=== PATIENT | male | born 1970 | race Caucasian/White ===

== ENCOUNTER 2023-09-08 13:20 | Emergency (ER) | payer OTHER, SELFPAY ==
--- NOTE | 2023-09-08 13:33 | ED.WOUNDLAC ---
HPI - Wound/Laceration General Chief Complaint: Wound/Laceration Stated Complaint: rt leg abrasion Source: patient Mode of arrival: ambulatory Limitations: no limitations History of Present Illness HPI narrative: 53-year-old male presented for complaint of laceration to the right lower leg sustained about 1 hour prior to arrival. He states he cut the leg on a piece of glass while taking out the garbage. He cleansed it with a wet paper towel and then applied Coban. Denies decreased ROM or pain. States tetanus is up-to-date. Related Data Home Medications Medication Instructions Recorded Confirmed duloxetine 30 mg capsule,delayed mg PO 09/08/23 release pregabalin 100 mg capsule mg 09/08/23 Allergies Allergy/AdvReac Type Severity Reaction Status Date / Time Penicillins Allergy Rash Verified 09/08/23 13:36 Review of Systems Review of Systems: CONSTITUTIONAL: Denies body aches, fever, chills, or sweats. CARDIOVASCULAR: Denies chest pain, palpitations, or edema. RESPIRATORY: Denies cough or dyspnea. GASTROINTESTINAL: Denies abdominal pain, nausea, vomiting, or diarrhea. SKIN: reports lac to right leg MUSCULOSKELETAL: Denies back pain, joint pain, or myalgia. NEUROLOGIC: Denies headache, numbness, tingling, or weakness. PMFSH Comments At time of signature, I have reviewed and agree with nursing past medical, surgical, social and family history unless otherwise noted. Please see nursing chart for further information. There is no relevant family history pertinent to the presenting complaint Exam Narrative: GENERAL: Well-appearing ENT: Mucous membranes moist. Oropharynx without edema, erythema or lesions. NECK: Supple. CHEST: Clear to auscultation. HEART: Regular rate and rhythm. SKIN: Warm, dry. Right posterior lower leg/calf with 3.5 cm linear clean lac noted, active bleeding. Tendon reflex intact. CMS intact. NEURO: Alert and oriented x3. Course Course Emergency Course: Patient is aware of diagnosis, understands and agrees to treatment plan. Anticipatory guidance given. Patient agrees to follow-up as directed and is aware of reasons to seek care at the emergency department. Portions of this record may have been created with voice recognition software Level of Care: Express Care Visit Vital Signs Vital signs: Vital Signs Temperature 98.0 F 09/08/23 13:34 Pulse Rate 100 09/08/23 13:34 Respiratory Rate 16 09/08/23 13:34 Blood Pressure 156/76 H 09/08/23 13:34 Pulse Oximetry 100 09/08/23 13:34 Oxygen Delivery Room Air 09/08/23 13:34 Temperature 98.0 F 09/08/23 13:36 Pulse Rate 100 09/08/23 13:36 Respiratory Rate 16 09/08/23 13:36 Blood Pressure 156/76 H 09/08/23 13:36 Pulse Oximetry 100 09/08/23 13:36 Oxygen Delivery Room Air 09/08/23 13:36 Reviewed Procedures Laceration right leg: Size (cm): 3.5 Description: linear and clean Depth: simple, single layer Local Anesthetic: lidocaine 1% and with epi Amount of anesthesia used (mL): 5 Pre-repair: wound explored and irrigated (50mL) ====== Skin Level ====== Skin layer closed with: nylon Size (cm): 5-0 Number of sutures: 6 Technique: simple, interrupted ====== Subcutaneous Layer ====== ====== Muscle Layer ====== ====== Tendon Layer ====== Dressing: The procedure and its alternatives were reviewed with patient. Risks were reviewed with patient including infection and damage to nearby structures. Patient provided verbal informed consent. The patient was positioned appropriately. Sterile drapes applied to maintain sterile field. Wound was explored for abnormalities including infection and foreign bodies. Sutures placed with wound edges approximated. Patient tolerated well, no complications. Dressing applied per RN. MDM - Wound/Laceration MDM Narrative Medical decision making narrative: Disc
[2023-09-08 13:34] VITALS: BP 156/76; PULSE 100; RESP 16; TEMP 36.7; O2SAT 100
[2023-09-08 13:36] VITALS: BP 156/76; PULSE 100; RESP 16; TEMP 36.7; O2SAT 100
[2023-09-08] MEDS: LIDO 1%/EPINEPHRINE 1:100,000 20 ML VIAL 10 ML INFILTRATE (13:45)
== END 2023-09-08 14:18 | disposition home or self-care (01) ==
PROVIDERS: Emergency Provider Nurse Practitioner Family; PCP Family Medicine
DX: S81.811A Laceration without foreign body, right lower leg, initial encounter (principal); W25.XXXA Contact with sharp glass, initial encounter
CPT/HCPCS: 12002; 99213; G0463

== ENCOUNTER 2023-09-15 11:23 | Emergency (ER) | payer OTHER, SELFPAY ==
[2023-09-15 11:35] VITALS: BP 137/84; PULSE 66; RESP 18; TEMP 36.7; O2SAT 98
--- NOTE | 2023-09-15 12:04 | ED.SKABFB ---
HPI - Skin/Abscess/Foreign Bdy General Chief complaint: Wound/Laceration Stated complaint: stitches removed Time Seen by Provider: 09/15/23 11:59 Source: patient, RN notes reviewed and old records reviewed Mode of arrival: ambulatory Limitations: no limitations History of Present Illness HPI narrative: Patient presents today for suture removal. He had 6 sutures placed in the posterior right calf 1 week ago after cutting his leg on glass. Patient reports no issues with the sutures since placement. Related Data Home Medications Medication Instructions Recorded Confirmed duloxetine 30 mg capsule,delayed 100 mg PO DAILY 09/08/23 09/15/23 release pregabalin 100 mg capsule 100 mg PO DAILY 09/08/23 09/15/23 Allergies Allergy/AdvReac Type Severity Reaction Status Date / Time Penicillins Allergy Rash Verified 09/15/23 11:46 Review of Systems Review of Systems: CONSTITUTIONAL: Denies body aches, fever, chills, or sweats. EYES: Denies visual changes, redness, or discharge. ENT: Denies rhinorrhea, congestion, sore throat, or otalgia. CARDIOVASCULAR: Denies chest pain, palpitations, or edema. RESPIRATORY: Denies cough or dyspnea. GASTROINTESTINAL: Denies abdominal pain, nausea, vomiting, or diarrhea. GENITOURINARY: Denies dysuria or hematuria. SKIN: Denies rash, itching. + healing wound to right leg MUSCULOSKELETAL: Denies back pain, joint pain, or myalgia. NEUROLOGIC: Denies headache, numbness, tingling, or weakness. PSYCH: Denies depression or anxiety. PMFSH Comments At time of signature, I have reviewed and agree with nursing past medical, surgical, social and family history unless otherwise noted. Please see nursing chart for further information. There is no relevant family history pertinent to the presenting complaint Exam Narrative: GENERAL: Well-appearing, well-nourished, and in no acute distress. HEAD: Normocephalic, atraumatic. EYES: EOMI. No redness or drainage. Conjunctivae normal. ENT: Mucous membranes pink and moist. NECK: Normal AROM. CHEST: No respiratory distress. EXTREMITIES: Normal range of motion. No edema. SKIN: Warm, dry, no rash. Capillary refill normal. Normal skin turgor. Six intact sutures to the posterior right calf. No signs of infection NEURO: No focal deficits. Alert and oriented x3. Gait steady. PSYCH: Normal affect. No signs of depression or anxiety. Course Course Level of Care: Express Care Visit Vital Signs Vital signs: Vital Signs Temperature 98.1 F 09/15/23 11:35 Pulse Rate 66 09/15/23 11:35 Respiratory Rate 18 09/15/23 11:35 Blood Pressure 137/84 09/15/23 11:35 Pulse Oximetry 98 09/15/23 11:35 Oxygen Delivery Room Air 09/15/23 11:35 Temperature 98.1 F 09/15/23 11:35 Pulse Rate 66 09/15/23 11:35 Respiratory Rate 18 09/15/23 11:35 Blood Pressure 137/84 09/15/23 11:35 Pulse Oximetry 98 09/15/23 11:35 Oxygen Delivery Room Air 09/15/23 11:35 Reviewed Procedures Other Procedure Procedure 1: Other Procedure: 6 intact sutures removed from healing laceration without difficulty. Wound edges approximated and scabbed. No signs of infection. Patient tolerated procedure well MDM - Skin/Abscess/Foreign Bdy MDM Narrative Medical decision making narrative: Sutures removed. Wound healing appropriately without signs of infection. Differential Diagnosis Differential diagnosis: Likely abscess of skin or subcutaneous tissue, cellulitis and other (Suture removal) Critical Care Time Critical Care Time Critical Care Time: No Discharge Plan Discharge Clinical Impression: Visit for suture removal Patient Disposition: Home, Self-Care Condition: Stable Instructions: Stitches Removal (ED) Additional Instructions: Your sutures have been removed today. Your wound seems to be healing well. Continue to wash with soap and water and monitor for any signs of infection. Your blood pressure was elevated
== END 2023-09-15 12:08 | disposition home or self-care (01) ==
PROVIDERS: Emergency Provider Nurse Practitioner; PCP Family Medicine
DX: S81.811D Laceration without foreign body, right lower leg, subsequent encounter (principal); W25.XXXD Contact with sharp glass, subsequent encounter
CPT/HCPCS: 99211; G0463